=== PATIENT | male | born 1955 | race African-American/Black ===

== ENCOUNTER 2019-05-04 23:28 | Emergency (ER) | payer MEDICAID, OTHER ==
[~2019-05-04] VITALS: Ht 177.8 cm; Wt 67.3 kg
[~2019-05-04 23:28] MED LIST: ASPI-556 PO; OMEP10 PO; QUET200T PO
[2019-05-04 23:50] VITALS: BP 161/84
[2019-05-05] MEDS ORDERED: HALOPERIDOL 5 MG TABLET PO ONE (01:30)
[2019-05-05] MEDS ORDERED: HALOPERIDOL LACTATE 5 MG/ML VIAL IM ONE (02:15)
== END 2019-05-05 02:57 | disposition home or self-care (01) ==
LOC: EMS 23:29
DX: F29 Unspecified psychosis not due to a substance or known physiological condition (principal); I10 Essential (primary) hypertension; F22 Delusional disorders; F32.9 Major depressive disorder, single episode, unspecified; F17.210 Nicotine dependence, cigarettes, uncomplicated; Z86.73 Personal history of transient ischemic attack (TIA), and cerebral infarction without residual deficits
CPT/HCPCS: 99284; J1630